=== PATIENT | female | born 1950 | race Caucasian/White ===

== ENCOUNTER 2016-09-05 00:08 | Day surgery (SDC) | payer MEDICARE, OTHER ==
[~2016-09-05] VITALS: Ht 169.6 cm; Wt 94.8 kg
[~2016-09-05 00:08] MED LIST: ALBU8.5H4 INHALATION; ALPR0.25 PO; CA C1TAB77 PO; CHOL10008 PO; CLOB15CR2 TP; DESO15CR10 TOP; PROZ20 PO
[2016-09-05] MEDS ORDERED: fentaNYL-PF 50 mCg/mL 2 mL Inj IVPUSH PRN (06:00)
[2016-09-05] MEDS ORDERED: Sodium Chloride LOK Flush 10 mL Syringe IV PRN (06:00)
[2016-09-05] MEDS ORDERED: 0.9% Sodium Chloride 1,000 ML IV SCH (06:00)
[2016-09-05 08:08] VITALS: BP 112/75; PULSE 74; RESP 17; O2SAT 97
[2016-09-05] MEDS ORDERED: BIOT1TAB13 PO (08:17)
[2016-09-05] MEDS ORDERED: CYCL1DRO OP (08:17)
[2016-09-05 08:58] VITALS: BP 95/64; PULSE 67; RESP 12; O2SAT 92
[2016-09-05 09:08] VITALS: BP 105/74; PULSE 60; RESP 14; O2SAT 93
[2016-09-05 09:18] VITALS: BP 102/78; PULSE 67; RESP 14; O2SAT 95
--- NOTE | 2016-09-05 09:25 | ENDO ---
[address] [address] ENDOSCOPY PROCEDURE PATIENT: SANDRA BECK : 1950 MR#: [id number] ADMIT: 09/05/2016 JOB ID: [id number] DATE OF SERVICE: 09/05/2016 OPERATION: Colonoscopy with biopsy. PREOPERATIVE DIAGNOSIS(ES): Colorectal cancer. POSTOPERATIVE DIAGNOSIS(ES): 1. A 1 mm rectal polyp, removed by cold biopsy forceps. 2. Moderate diverticulosis in the sigmoid and transverse colon. ANESTHESIA: 1. Fentanyl 100 mcg. 2. Versed 5 mg IV administered. COMPLICATIONS: None. BLOOD LOSS: Minimal. DESCRIPTION OF PROCEDURE: After risks and benefits were explained to the patient, informed consent was obtained. After anesthesia administered, a colonoscope was inserted from the rectum to the cecum. Mucosa carefully examined. Prep of the patient was fair. After procedure, the scope was withdrawn and the procedure terminated. FINDINGS: Upon inspection of the anus, no masses, hemorrhoids, ulcers, or fissures that were seen throughout the entire examination. There was a 1 mm rectal polyp, removed by cold biopsy forceps. There was also a moderate sigmoid and transverse colon diverticulosis. Retroflexion was normal. IMPRESSIONS: 1. Moderate sigmoid and transverse colon diverticulosis. 2. A 1 mm rectal polyp, removed by cold biopsy forceps. RECOMMENDATIONS: Await pathology results. If tubular adenoma, then repeat colonoscopy in five years. Otherwise, repeat colonoscopy in 10 years. High-fiber diet.
--- NOTE | 2016-09-06 14:47 | PATH ---
SURGICAL PATHOLOGY Attending Physician:Santi Araujo MD CASE STATUS: Signed Out PATIENT NAME: SANDRA BECK PID: [id number] : 1950 DATE COLLECTED:09/05/2016 16:31 SPECIMEN: Rectum, Biopsy CLINICAL HISTORY: 1. RECTAL POLYP FINAL DIAGNOSIS: 1.RECTAL POLYP, BIOPSY: CHANGES CONSISTENT WITH MINUTE HYPERPLASTIC POLYP. ICD10 K62.1 GROSS DESCRIPTION: The specimen is received in one formalin filled container labeled with the patient's name, sublabeled "rectal polyp" and consists of a less than 0.1 CM portion of tissue which is entirely submitted in one cassette. 09/05/2016 DAC MICRO DESCRIPTION: See diagnosis. ICD-9 CODES: CPT CODES: 1: 84374 Electronically Signed Out Aiden Villegas MD [facility] Pathology [facility] [address], [place] [address] Technical component performed at [facility], [facility] [address], [place], [address]
== END 2016-09-05 23:59 | disposition home or self-care (01) ==
LOC: END 00:08
PROVIDERS: ATTEND Internal Medicine Gastroenterology
DX: Z12.11 Encounter for screening for malignant neoplasm of colon (principal); K62.1 Rectal polyp; K57.30 Diverticulosis of large intestine without perforation or abscess without bleeding; J44.9 Chronic obstructive pulmonary disease, unspecified; I10 Essential (primary) hypertension; E78.5 Hyperlipidemia, unspecified; M85.9 Disorder of bone density and structure, unspecified; F33.2 Major depressive disorder, recurrent severe without psychotic features; Z79.51 Long term (current) use of inhaled steroids
CPT/HCPCS: 45380; G0500; J2250; J3010; J7030